=== PATIENT | female | born 1975 | race Caucasian/White ===

== ENCOUNTER 2018-09-14 08:21 | Emergency (ER) | payer OTHER ==
[~2018-09-14] VITALS: Ht 167.6 cm; Wt 90.7 kg
[~2018-09-14 08:21] MED LIST: AMOXICILLIN875 MG; ATIVAN0.5 MG; BENICAR20 MG; CEPHALEXIN 500500 M3 PO; COZAAR 25 MG TA25 M1 PO; IBUPROFEN 800800 M1 PO; LEXAPRO20 MG; MEDROL DOSPAK21 TA1 PO; PREVACID; VITAMIN D400 UNI1
[2018-09-14] MEDS ORDERED: BENICAR20 MG PO (08:29)
[2018-09-14] MEDS ORDERED: NORCO 5-325 TA1 EAC1 PO (10:37)
[2018-09-14 10:59] VITALS: BP 145/78
== END 2018-09-14 11:00 | disposition home or self-care (01) ==
LOC: M.ERS 08:21
DX: S82.61XA Displaced fracture of lateral malleolus of right fibula, initial encounter for closed fracture (principal); F41.0 Panic disorder [episodic paroxysmal anxiety]; I10 Essential (primary) hypertension; Z88.6 Allergy status to analgesic agent; W10.8XXA Fall (on) (from) other stairs and steps, initial encounter; Y93.89 Activity, other specified; Y92.89 Other specified places as the place of occurrence of the external cause; Y99.8 Other external cause status